=== PATIENT | female | born 1950 ===

== ENCOUNTER 2017-06-17 11:58 | Day surgery (SDC) | payer OTHER ==
[~2017-06-17 11:58] MED LIST: CARDIZEM CD180 MG PO; NOVOLOG100 UNIT/1; SYNTHROID50 MCG PO; XARELTO20 MG PO
== END 2017-06-17 18:25 | disposition home or self-care (01) ==
LOC: CIR.AMB 11:58
DX: M80.88XA Other osteoporosis with current pathological fracture, vertebra(e), initial encounter for fracture (principal)